=== PATIENT | male | born 1970 | race Caucasian/White ===

== ENCOUNTER 2017-05-28 10:19 | Day surgery (SDC) | payer BC ==
[~2017-05-28 10:19] MED LIST: ACETAMINOPHEN 1,000 MG/100 ML BTL IV ONE; CEFAZOLIN 2 Gram 2 GM/50 ML BAG IVPB ONE
[2017-05-28] MEDS ORDERED: ONDANSETRON HCL IV 4 MG/2 ML VIAL IVP ONE (14:00)
[2017-05-28] MEDS ORDERED: SEVOFLURANE 250 ML INH ONE (14:00)
[2017-05-28] MEDS ORDERED: MIDAZOLAM HCL 2MG/2ML VIAL IV ONE (14:00)
[2017-05-28] MEDS ORDERED: HYDROMORPHONE HCL 2 MG/ML VIAL IV ONE (14:00)
[2017-05-28] MEDS ORDERED: PROPOFOL 10 MG/ML VIAL IV ONE (14:00)
[2017-05-28] MEDS ORDERED: KETOROLAC 30 MG/ML VIAL IVP ONE (14:00)
[2017-05-28] MEDS ORDERED: BUPIVACAINE 0.25% W/EPI MPF 30ML VIAL IVP ONE (14:00)
[2017-05-28] MEDS ORDERED: LIDOCAINE 2% MDV (20MG/ML) 20ML VIAL IV ONE (14:00)
[2017-05-28] MEDS ORDERED: FENTANYL PF 100MCG/2ML VIAL IV ONE (14:00)
--- NOTE | 2017-05-29 12:31 | Operative Note ---
DATE OF SURGERY: 05/28/2017 Surgeon: Chris Gray DO PREOPERATIVE DIAGNOSIS: Acromioclavicular arthrosis of the right shoulder. POSTOPERATIVE DIAGNOSIS: Acromioclavicular arthrosis of the right shoulder. OPERATION: Grayson procedure of the right shoulder. DESCRIPTION OF PROCEDURE: This 47-year-old male was taken to the operating room, placed in the supine position on the operating room table where general anesthetic was administered. The right shoulder was prepped with Hibiclens and draped in the usual sterile fashion after it has been secured in beach chair position on the operating room table. An incision was made in Matheus's lines centering over the acromioclavicular joint of the right shoulder and dissection was carried down through the skin and subcutaneous tissue. Hemostasis was obtained with the electrocautery. Self-retaining retractor was placed. A capsule "T" type capsulotomy incision was performed. Subperiosteal elevation carried out over the end of the distal clavicle to resect approximately 0.75 cm of the distal clavicle. Once this wafer of bone was removed, a power rasp was used to further smooth and contour the cut edge of the distal clavicle. There was sufficient room once the acromioclavicular disk which had been totally disrupted and desiccated was removed. The wound was irrigated with lactated Ringer's solution and again hemostasis obtained with the electrocautery. The capsule was repaired with #1 Vicryl, subcutaneous tissue closed with 4-0 Vicryl, and skin with a running 4-0 nylon suture. The wound was infiltrated with 0.25% Marcaine with epinephrine. Sterile dressings applied and the patient take to the recovery room in satisfactory condition. GROSS PATHOLOGY: This patient demonstrated a disruption of the acromioclavicular disk and degeneration of the articular cartilage on the clavicular end of the AC joint. [facility]
== END 2017-05-28 14:30 | disposition home or self-care (01) ==
LOC: SUR 10:19
PROVIDERS: ATTEND Orthopaedic Surgery
DX: M19.011 Primary osteoarthritis, right shoulder (principal); I10 Essential (primary) hypertension
CPT/HCPCS: 23120; 00450; J1885; J2405; J3010; J1170; J0690